=== PATIENT | female | born 1935 | race Two or more races ===

== ENCOUNTER 2020-02-06 17:09 | Inpatient (IN) | payer BC, OTHER ==
[~2020-02-06] VITALS: Ht 157.5 cm; Wt 48.5 kg
[2020-02-06] MEDS ORDERED: SODIUM CHLORIDE 0.9% 500 ML IV ONE (21:15)
[2020-02-06 21:27] LABS: Basophils # (auto) 0 10 ^3/uL (0-0.2); Basophils % (auto) 0.9 % (0.0-2.0); Eosinophils # (auto) 0.2 10 ^3/uL (0-0.8); Eosinophils % (auto) 4.7 % (0.0-7.0); Hemoglobin 12.8 g/dL (12.2-16.2); Lymphocytes # (auto) 1.3 10 ^3/uL (0.4-5.4); Lymphocytes % (auto) 27.3 % (10.0-50.0); Mean Corpuscular Hemoglobin 33.2 pg (28.0-32.0); Mean Corpuscular Hgb Conc. 33.7 g/dL (32.0-36.0); Mean Corpuscular Volume 98.6 fL (80.0-100.0); Monocytes # (auto) 0.4 10 ^3/uL (0-1.3); Monocytes % (auto) 8.1 % (0.0-12.0); Neutrophils # (auto) 2.8 10 ^3/uL (1.6-8.6); Platelet Count (auto) 260 10^3/uL (140-450); Red Blood Cells 3.86 10^6/uL (4.0-5.20); Red Cell Distribution Width 13.9 % (11.8-14.3); White Blood Cell 4.7 10^3/uL (4.4-10.8)
[2020-02-06 21:38] LABS: Albumin 3.2 g/dL (3.4-5.0); Anion Gap 4 (5-15); Blood Urea Nitrogen 13 mg/dL (7-18); Calcium 8.6 mg/dL (8.5-10.1); Carbon Dioxide 30 mmol/L (21-32); Chloride 108 mmol/L (98-107); Glucose 96 mg/dL (74-106); Potassium 3.9 mmol/L (3.5-5.1); Sodium 142 mmol/L (136-145)
[2020-02-06 21:44] LABS: Alanine Aminotransferase 22 U/L (13-56); Alkaline Phosphatase 42 U/L (45-117); Aspartate Aminotransferase 16 U/L (15-37); BUN/Creatinine Ratio 17.3; Bilirubin, Total 0.3 mg/dL (0.2-1.0); GFR African American 94 mL/min; GFR Non-African American 78 mL/min; Total Protein 6.7 g/dL (6.4-8.2)
[2020-02-06 22:32] LABS: Urine WBC None Seen /hpf (0 - 5)
[2020-02-06 22:44] LABS: Urine Bacteria NONE SEEN /hpf (None Seen); Urine Blood Negative /uL (Negative); Urine Specific Gravity 1.007 (1.001-1.035)
[2020-02-07] MEDS ORDERED: cloNIDine HCL 0.1 MG TAB PO ONE (00:15)
[2020-02-07] MEDS ORDERED: cloNIDine HCL 0.1 MG TAB PO PRN (00:15)
[2020-02-07] MEDS ORDERED: ACETAMINOPHEN 325 MG TAB PO PRN (00:15)
[2020-02-07] MEDS ORDERED: TEMAZEPAM 15 MG CAP PO PRN (00:15)
[2020-02-07] MEDS ORDERED: ONDANSETRON HCL 4 MG/2 ML VIAL IV PRN (00:15)
[2020-02-07 03:30] VITALS: BP 126/67
--- NOTE | 2020-02-07 03:30 | NUR ---
MS admit from ER [facility] admitted to tele/MS. Patient oriented to CONNOR CLEMENTE, RN primary RN, unit, room, bed, and unit policies regarding patient care and visiting hours. Patient weighed by bedscale and encouraged to call if they need something. All questions and concerns addressed, patient verbalized understanding. Paient is alert to self and time. But does not know why or how she arrived at the hospital. Patient begins to get agitated when asked admision questions. Will try and contact a next of kin for admission questions. Will continue to monitor Q1hr and PRN.
--- NOTE | 2020-02-07 03:30 | NUR ---
Admission Patient has dementia she was not able to answer admission question. This RN tried to answer as much admission questions from her chart. Notified primary nurse about the rest of the admission question not answer.
[2020-02-07 05:11] VITALS: BP 126/67
--- NOTE | 2020-02-07 06:35 | NUR ---
Spoke With son Rishabh Spoke to son Rishabh to complete admission questions. Rishabh answered to the best of his knowledge. Will complete admission assessment.
--- NOTE | 2020-02-07 07:53 | NUR ---
Closing note Endorsed care to day shift RN. No sob or distress noted.
--- NOTE | 2020-02-07 08:00 | NUR ---
Opening Shift Note Assumed care of patient, awake and alert. No S/S of distress/SOB or pain. Patient history of dementia, bed alarm on for safety. Instructed on POC and to call for assist PRN, will continue to monitor for changes Q1hr and PRN.
--- NOTE | 2020-02-07 08:27 | NUR ---
SPOKE WITH DAUGHTER BIMAL PATIENT HOME MEDICATIONS INCLUDE LEVOTHYROXINE 25 MCG DAILY, DONAZAPIL UNKNOW DOSAGE, AMOXACILIIN 500 MG QID FOR TOOTH INFECTION AND EAR DROPS FOR WAX BUILD UP. BIMAL STATED SHE WILL BRING EAR DROPS AND PATIENTS EYE GLASSES TODAY. PATIENT UPDATED.WILL CONTINUE TO MONITOR.
[2020-02-07 09:00] VITALS: BP 135/66
[2020-02-07] MEDS ORDERED: ENOXAPARIN SOD 40 MG/0.4 ML SYRINGE SC SCH (10:00)
[2020-02-07] MEDS ORDERED: FAMOTIDINE 20 MG TAB PO SCH ×2 (10:00)
[2020-02-07] MEDS ORDERED: amLODIPine BESYLATE 5 MG TAB PO SCH (10:00)
[2020-02-07 13:00] VITALS: BP 140/57
[2020-02-07 17:00] VITALS: BP 128/68
--- NOTE | 2020-02-07 17:30 | NUR ---
SPOKE WITH SON PATIENT DC UPDATED SON ADAM PATIENT IS DISCHARGED. SON STATED HE WILL BE HERE BETWEEN 1830 - 1900. ALL PAPERWORK SIGNED, IV D/C'D , CATHETER INTACT, TOLERATED WELL. ALL BELONGINGS WITH PATIENT BEDSIDE.
--- NOTE | 2020-02-07 19:19 | NUR ---
ENDORSED CARE TO NIGHT RN PATIENT AWAITING HER SON TO PICK HER UP.
== END 2020-02-07 19:27 | disposition home or self-care (01) | DRG 948 ==
LOC: EDBD 17:09 → ER 17:09 → OVERFLOW 17:10 → WEST WING 02-07 03:23
PROVIDERS: ADMIT Nurse Practitioner; ATTEND Internal Medicine
DX: R53.1 Weakness (principal); G93.40 Encephalopathy, unspecified; G45.9 Transient cerebral ischemic attack, unspecified; I10 Essential (primary) hypertension; E03.9 Hypothyroidism, unspecified; F03.90 Unspecified dementia, unspecified severity, without behavioral disturbance, psychotic disturbance, mood disturbance, and anxiety; R90.82 White matter disease, unspecified; Z20.828 Contact with and (suspected) exposure to other viral communicable diseases; M47.812 Spondylosis without myelopathy or radiculopathy, cervical region
CPT/HCPCS: 36415; 70450; 71045; 71046; 72040; 80053; 81001; 83605; 83880; 84484; 85025; 87426; G0378